=== PATIENT | male | born 1950 | race Caucasian/White ===

== ENCOUNTER → 2016-08-15 | Outpatient (REF) | payer MEDICARE, OTHER ==
[~2016-08-15] MED LIST: /ACETCOD2T PO; /PANT40TA PO; ALLO300T2 PO; ASPI325T PO; ATOR40TA PO; CALC1CAP31 PO; CO Q100C10 PO; CRES20TA PO; FEBU40TA PO; FISH1000 PO; FURO80TA2 PO; GABA300C2 PO; HUMA100I SC; HUMU70IN SC; INSUHUMDS SC; INSULANT SC; INSUR50VL SC; INVO100T PO; LANTINJ4 SC; LIPI20TA PO; LOPR50TA PO; MAGN1TAB25 PO; METF500T PO; MULTTAB35 PO; NITR0.4D6 TD; POTASSIUM CHLORIDE PO; RANI15TA PO; SOMA350T PO; SPIR25TA2 PO; TORS20TA2 PO; TOUJ1.2I SC; ULOR80TA PO; VITA-121 PO; VITA500C24 PO; VOLT1GEL2 TOP; ZANT300T PO; [UNRECOGNIZED DRUG - OTHER] PO
== END ==
LOC: M LABNEURO 17:05
PROVIDERS: ATTEND Psychiatry & Neurology Neurology
DX: R79.9 Abnormal finding of blood chemistry, unspecified (principal)

== ENCOUNTER 2018-08-08 23:15 | Inpatient (IN) | payer MEDICARE ==
[~2018-08-08] VITALS: Ht 175.3 cm; Wt 156.9 kg
[~2018-08-08 23:15] MED LIST changes: -ATOR40TA PO; +ATOR40TA75 PO; -ZANT300T PO; +ZANT300T9 PO
[2018-08-09 02:15] VITALS: BP 139/63
[2018-08-09] MEDS ORDERED: ONDANSETRON 4MG/2ML VIAL (J2405) IV PRN (02:30)
[2018-08-09 03:29] LABS: HEMATOCRIT 43.4 % (42.0-52.0); MEAN CORPUSCULAR HEMOGLOBIN 28.4 pg (27.0-33.0); MEAN CORPUSCULAR HGB CONC 32.3 g/dl (32.0-36.5); PLATELET COUNT, AUTOMATED 146 10^3/uL (150-450); RED BLOOD COUNT 4.93 10^6/uL (4.30-6.10); WHITE BLOOD COUNT 19.5 10^3/uL (4.0-10.0)
[2018-08-09 03:33] LABS: INR 1.29; PROTHROMBIN TIME 16.3 SECONDS (12.1-14.4)
[2018-08-09 03:35] LABS: ALBUMIN 2.8 GM/DL (3.2-5.2); BILIRUBIN,TOTAL 0.8 MG/DL (0.2-1.0); CALCIUM LEVEL 8.8 MG/DL (8.8-10.2); CREATININE FOR GFR 2.67 MG/DL (0.70-1.30); GLOMERULAR FILTRATION RATE 25.5 (>49); MAGNESIUM LEVEL 2.3 MG/DL (1.8-2.4); POTASSIUM SERUM 4.1 MEQ/L (3.5-5.1); TOTAL PROTEIN 7.4 GM/DL (6.4-8.2); TROPONIN I 0.1 NG/ML (< 0.10)
[2018-08-09 03:39] LABS: PARTIAL THROMBOPLASTIN TIME 37.8 SECONDS (25.4-37.6)
[2018-08-09] MEDS ORDERED: ASPI1TAB20 PO (03:40)
[2018-08-09] MEDS ORDERED: BACL10TA2 PO (03:40)
[2018-08-09] MEDS ORDERED: GABA-843 PO (03:40)
[2018-08-09] MEDS ORDERED: ACET1TAB16 PO (03:40)
[2018-08-09] MEDS ORDERED: ASCO500T PO (03:40)
[2018-08-09] MEDS ORDERED: ULOR80TA PO (03:40)
[2018-08-09] MEDS ORDERED: ATOR40TA75 PO (03:40)
[2018-08-09] MEDS ORDERED: INSUHUMDS SC (03:40)
[2018-08-09] MEDS ORDERED: CALC1CAP31 PO (03:40)
[2018-08-09] MEDS ORDERED: TOUJ1.2I SC (03:40)
[2018-08-09] MEDS ORDERED: HUMA100I5 SC (03:40)
[2018-08-09] MEDS ORDERED: TRAD5TAB PO (03:40)
[2018-08-09] MEDS ORDERED: FAMO40TA3 PO (03:40)
[2018-08-09] MEDS ORDERED: DEXTROSE 50% 50 ML SYRINGE IV PRN (03:45)
[2018-08-09] MEDS ORDERED: VITMTA PO (03:45)
[2018-08-09] MEDS ORDERED: GLUCAGON FOR INJ 1 MG VIAL (J1610) SC PRN (03:45)
[2018-08-09] MEDS ORDERED: CO Q200C7 PO (03:45)
[2018-08-09] MEDS ORDERED: SPIR-10 PO (03:45)
[2018-08-09] MEDS ORDERED: METO5TA PO (03:45)
[2018-08-09] MEDS ORDERED: TORS100T PO (03:45)
[2018-08-09] MEDS ORDERED: METO50TA7 PO (03:45)
[2018-08-09] MEDS ORDERED: OMEG12004 PO (03:45)
[2018-08-09] MEDS ORDERED: GLUCOSE 4 GM CHEW TABLET PO PRN (03:45)
[2018-08-09] MEDS ORDERED: BACLOFEN 10 MG TAB PO PRN (04:00)
[2018-08-09] MEDS ORDERED: NS 1,000 ML IV SCH (04:00)
[2018-08-09] MEDS: CO-ENZYME Q10 50 MG CAP PO SCH ×2 (04:33→20:51)
[2018-08-09] MEDS: FAMOTIDINE 20 MG TAB PO SCH ×2 (04:33→20:52)
[2018-08-09] MEDS: ATORVASTATIN 20 MG TAB PO SCH ×2 (04:33→20:51)
[2018-08-09] MEDS ORDERED: IPRATROPIUM 0.5MG/ALBUTEROL 2.5MG INH SOL UD 3ML (DUONEB)(J7620) NEB PRN (04:45)
[2018-08-09] MEDS: HEPARIN SOD (PORCINE) 5000 UNITS/ML VIAL SC SCH ×3 (05:20→20:52)
[2018-08-09 06:00] VITALS: BP 128/69
[2018-08-09 06:39] LABS: THYROID STIMULATING HORMONE 0.959 uIU/ML (0.358-3.740)
[2018-08-09] MEDS ORDERED: LEVEMIR (INSULIN DETEMIR) 1 UNITS/0.01ML SC SCH ×2 (09:00)
[2018-08-09] MEDS: CALCITRIOL 0.25 MCG CAP (S0169) PO SCH (09:54)
[2018-08-09] MEDS: LEVEMIR (INSULIN DETEMIR) 1 UNITS/0.01ML SC SCH ×2 (09:54→20:53)
[2018-08-09] MEDS: FEBUXOSTAT 40 MG TABLET (ULORIC) PO SCH (09:54)
[2018-08-09] MEDS: ASPIRIN 325 MG TAB PO SCH (09:54)
[2018-08-09] MEDS: ASCORBIC ACID 500 MG TAB PO SCH (09:54)
[2018-08-09] MEDS: HumaLOG INSULIN (NovoLOG) PER UNIT SC SCH ×3 (09:54→17:33)
[2018-08-09] MEDS: METOPROLOL TART 50 MG TAB PO SCH ×2 (09:55→20:52)
[2018-08-09] MEDS: GABAPENTIN 300 MG CAP PO SCH ×2 (09:55→20:52)
[2018-08-09] MEDS: MULTIVITAMINS/MINERALS THERAP 1 TAB PO SCH (09:55)
[2018-08-09 10:25] LABS: AMORPHOUS SEDIMENT SMALL (NEGATIVE); APPEARANCE, URINE CLEAR (CLEAR); BACTERIA, URINE AUTO 2+ (NEGATIVE); BILIRUBIN, URINE AUTO NEGATIVE (NEGATIVE); BLOOD, URINE BLOOD 3+ (NEGATIVE); COLOR, URINE YELLOW (YELLOW); GLUCOSE, URINE (UA) AUTO NEGATIVE (NEGATIVE); KETONE, URINE AUTO NEGATIVE (NEGATIVE); LEUKOCYTE ESTERASE, URINE AUTO 1+ (NEGATIVE); MUCUS, URINE SMALL (NEGATIVE); NITRITE, URINE AUTO NEGATIVE (NEGATIVE); PROTEIN, URINE AUTO 1+ mg/dL (NEGATIVE); RBC, URINE AUTO 134 /HPF (0-3); SQUAMOUS EPITHELIAL CELL UR AU 0 /HPF (0-6); UROBILINOGEN, URINE AUTO 0.2 mg/dL (0.0-2.0); WBC, URINE AUTO 31 /HPF (0-3)
--- NOTE | 2018-08-09 10:27 | HPE ---
DATE OF ADMISSION: 08/09/2018 CHIEF COMPLAINT: The patient was transferred from [facility] where he presented with what was described as confusion and elevated white count, elevated blood pressure. HISTORY OF PRESENT ILLNESS: The patient is a 68-year-old male. He is a very poor historian. Gave a significant past medical history of insulin dependent diabetes with neuropathy, coronary artery disease (CAD) status post coronary artery bypass graft (CABG), questionable congestive heart failure (CHF), hypertension, hyperlipidemia, gout, obstructive sleep apnea on CPAP. He also has chronic kidney disease (CKD) and follows with Dr. Bahena. He presented to the emergency room at [facility], brought there by his with what his describes as confusion. While there, he was noted to have a white count of 19. He was juárez scanned CT of the abdomen and pelvis showing a hernia on my review but, other than that, no acute disease. CT of the chest showed left lower lobe atelectasis versus pneumonia. CT of the head showed atrophy and microvascular ischemic disease but no acute change. His BUN and creatinine was noted to be elevated at 108/2.9. Dr. Block, his regional flatbed truck driver who is partnered for nephrology Dr. Bahena was called It appears his baseline creatinine is around 2. Casillas was placed there with decent urine output. He was subsequently transferred here because of concern for acute renal failure and the fact that there is no nephrology service available at [facility]. On presentation, the patient is seen and examined at beside. His labs are reviewed. He has a white count of 19. He does not appear toxic. He denies any cough, fevers, chills, chest pain, shortness of breath, He has no focal neurological deficits. He denies any abdominal pain, constipation, diarrhea, or urinary symptoms. He has a Casillas in place that is draining. He is alert and oriented times two. He does have some difficulty stating what date it is but he is aware of where he is and he is oriented to person. He is able to hold a cohesive conversation and give significant details in regards to his history. He has a history of chronic back pain for which he takes Tylenol #3 and is recently started on muscle relaxer approximately 1 month ago. States he has not taken the medication today. I am unclear if this is polypharmacy contributing to changes in mentation. He does not appear toxic. He does not appear in any acute distress, however, he does have a white count of 19,000. The rest of his labs. BUN and creatinine has improved from 97. To 2.67. Previously in the other labs, baseline creatinine is around 2. PAST MEDICAL HISTORY: See history of present illness (HPI). PAST SURGICAL HISTORY: He has had appendectomy. Tonsillectomy. Back surgery. CABG in 2009 at [facility]. HOME MEDICATIONS: - vitamin C - aspirin 325 mg - Lipitor - baclofen - calcitriol - Pepcid - Uloric - gabapentin - Toujeo 150 twice a day - metoprolol 50 mg by mouth twice a day - multivitamins - Tylenol #3 - muscle relaxant, he states which he recently started and cannot recall the name. ALLERGIES: NONSTEROIDAL ANTI-INFLAMMATORY DRUGS (NSAIDS), tape. SOCIAL HISTORY: Denies tobacco, alcohol or illicit drug use. FAMILY HISTORY: Noncontributory. REVIEW OF SYSTEMS: A 12-point review of system was completed all of which were negative except those listed in the history of present illness (HPI). VITALS: On admission temperature 98.3, pulse 88, respirations 18, blood pressure 139/63, saturating at 96% on 3 liters. PHYSICAL EXAMINATION: GENERAL: He is obese. In no apparent distress. HEAD: Normocephalic, atraumatic. NECK: Supple. No jugular venous pulse (JVP). LUNGS: Poor air entry. Difficult to auscultate due to body habitus. No wheezing or crackles discerned. CARDIOVASCULAR: Regular rate and rhythm. Normal S1, S2, no murmurs, gallops or rubs. ABDOMEN: Obese. But nontender. Positive bowel sounds. No rebound or guarding. EXTREMITIES: No edema. No calf tenderness. SKIN: Appears to be intact. No rashes, lesions or breakdown. NEUROLOGIC: He is alert and oriented to person and place easily. He has to be prompted to be alert to time. He has some trouble but he is able to hold a cohesive conversation. No focal neurologic deficit. Sensation and power appear to be intact. He appears to be somewhat of a poor historian. Labs on admission completed here: He has a white count of 19, hemoglobin and hematocrit 14/43, platelet count 146. Coags shows an INR of 1.2, PT 16, PTT 37. Chemistries: BUN and creatinine of 97/2.67. As per Dr. Block, his baseline creatinine is around 2. Bicarbonate 29, lactate within normal limits, AST 48, alkaline phosphatase 177. Fingerstick is 223. His imaging was reviewed. CT of the head shows atrophy but no acute change. CT of the chest shows left lower lobe haziness, possible atelectasis versus pneumonia. CT of the abdomen and pelvis shows no acute pathology, as per my review, still awaking official results. ASSESSMENT/PLAN: Delirium, confusion: The etiology at this point is unclear. The patient does not appear toxic. Will treat him for community acquired pneumonia with Rocephin and Zithromax with an elevated white count. Will send a sputum culture. Oxygen as needed. Blood cultures times two as well as urinanalysis to be repeated. Negative at the outside facility. For acute kidney injury (VIVIAN) and chronic kidney disease (CKD) will send urine lytes. Will get renal consultation. CT of the abdomen and pelvis completed. Does not appear to have any obstruction. Will fluid hydrate gently. Patient appears to be dehydrated. There is also question of possible polypharmacy, possibly hypoglycemia. I am unclear why the patient had waxing and waning of mentation. Will send a B12 level as well as a TSH. For his chronic medical conditions, questionable congestive heart failure (CHF): As patient appears to be dehydrated, at this point, will hold his diuretics metolazone, spironolactone and torsemide. . For his chronic pain, will hold his Tylenol #3 as well as his muscle relaxant he recently started on. For diabetes with neuropathy, continue gabapentin. He is on Toujeo 150 mg twice a day. It is a very high dose. Will start at 120 of Levemir twice a day for now. Though it is a 1:1 ratio of Toujeo to Levemir, will place him on insulin sliding scale. Will continue gabapentin for his neuropathy. Will hold Tradjenta Obstructive sleep apnea on CPAP with 3 liters bled in at night. Will continue his CPAP as well as his oxygen nasal cannula. Coronary artery disease status post CABG: Will continue aspirin 325 mg. Will continue metoprolol 50 mg twice a day. For gout, will continue Uloric (febuxostat). Will also place him on DuoNebs as needed. Gastroesophageal reflux disease (GERD), will continue Pepcid. Deep venous thrombosis (DVT) prophylaxis: Heparin subcutaneous. GI prophylaxis: The patient is on Pepcid. Diet: Cardiac, diabetic, fluid restriction 2 liters per day. Again, the patient does not appear toxic. I am unclear as to why he is having waxing and waning delirium, changes in his mentation as per his . Unclear if this is pneumonia with worsening renal failure and dehydration causing mild uremia and some confusion versus polypharmacy and will rule out other causes of dementia and sent TSH as well as a B12 and RPR. The patient is to be seen by a regional flatbed truck driver in the morning.
[2018-08-09 10:31] LABS: CHLORIDE,RANDOM URINE < 10 MEQ/L; POTASSIUM RANDOM URINE 21.5 MEQ/L; SODIUM,RANDOM URINE 24 MEQ/L
[2018-08-09 14:00] VITALS: BP 124/58
[2018-08-09] MEDS: cefTRIAXone SOD 1 GM in D5W MINI-BAG PLUS 50 ML IV SCH (20:51)
[2018-08-09] MEDS: AZITHROMYCIN INJ 500 MG, VIAL MATE ADAPTER 1 EACH in D5W 250 ML IV SCH (21:53)
[2018-08-09 22:00] VITALS: BP 179/70
--- NOTE | 2018-08-10 00:35 | ECGEPIP ---
Stationary ECG Study [facility] Test Date: 2018-08-09 Pat Name: VELVET HOLLIS Department: Room: [place] [address] Gender: M Software Support Engineer: KRISTIAN : [id number] Requested By: HOMAR HARRIETT Order Number: [id number] Reading MD: Garry Flores Measurements Intervals [place] Rate: 83 P: 48 GA: 206 QRS: -7 QRSD: 134 T: 115 QT: 415 QTc: 489 Interpretive Statements SINUS RHYTHM WITH OCCASIONAL VENTRICULAR PREMATURE COMPLEXES INTRAVENTRICULAR CONDUCTION DELAY NS ST/T ABNORMALITY NO PRIOR Electronically Signed On 08-10-2018 0:35:05 EST by Garry Flores
[2018-08-10] MEDS: HEPARIN SOD (PORCINE) 5000 UNITS/ML VIAL SC SCH ×3 (05:37→21:10)
[2018-08-10 06:00] VITALS: BP 156/64
[2018-08-10 06:47] LABS: HEMATOCRIT 40.7 % (42.0-52.0); HEMOGLOBIN 12.9 g/dl (13.5-17.5); MEAN CORPUSCULAR HEMOGLOBIN 27.9 pg (27.0-33.0); MEAN CORPUSCULAR HGB CONC 31.7 g/dl (32.0-36.5); MEAN CORPUSCULAR VOLUME 88.1 fl (80.0-96.0); PLATELET COUNT, AUTOMATED 134 10^3/uL (150-450); RED BLOOD COUNT 4.62 10^6/uL (4.30-6.10); WHITE BLOOD COUNT 9.1 10^3/uL (4.0-10.0)
[2018-08-10 07:19] LABS: CALCIUM LEVEL 8.9 MG/DL (8.8-10.2); CREATININE FOR GFR 2.21 MG/DL (0.70-1.30); GLOMERULAR FILTRATION RATE 31.8 (>49)
[2018-08-10] MEDS: GABAPENTIN 300 MG CAP PO SCH ×2 (08:09→21:11)
[2018-08-10] MEDS: ASCORBIC ACID 500 MG TAB PO SCH (08:09)
[2018-08-10] MEDS: CALCITRIOL 0.25 MCG CAP (S0169) PO SCH (08:09)
[2018-08-10] MEDS: ASPIRIN 325 MG TAB PO SCH (08:09)
[2018-08-10] MEDS: MULTIVITAMINS/MINERALS THERAP 1 TAB PO SCH (08:09)
[2018-08-10] MEDS: FEBUXOSTAT 40 MG TABLET (ULORIC) PO SCH (08:09)
[2018-08-10] MEDS: METOPROLOL TART 50 MG TAB PO SCH ×2 (08:09→21:12)
[2018-08-10] MEDS: LEVEMIR (INSULIN DETEMIR) 1 UNITS/0.01ML SC SCH ×2 (08:10→21:11)
[2018-08-10] MEDS: HumaLOG INSULIN (NovoLOG) PER UNIT SC SCH ×3 (08:10→17:50)
--- NOTE | 2018-08-10 09:06 | CR ---
DATE OF CONSULTATION: 08/09/2018 REQUESTING PHYSICIAN: Dr. Ma Friday CONSULTING PHYSICIAN: Dr. Block REASON FOR CONSULTATION: Management of acute renal failure superimposed on chronic kidney disease. CHIEF COMPLAINT: The patient was transferred from [facility] last night. He presented to the emergency room (ER) last night with altered mental status and confusion and he was found to have acute renal failure over there with elevated white cell count. HISTORY OF PRESENT ILLNESS: Mr. Jameel Bowen is a 68-year-old male with past medical history of chronic kidney disease Stage IV with a baseline creatinine of around 2.4. He follows up with Dr. Bahena as an outpatient in the nephrology office. He has multiple other comorbidities including coronary artery disease, congestive heart failure, hypertension, and multiple other comorbidities as mentioned below. He presented to the [facility] last night where he was taken by his because of confusion and altered mental status. The lab work done in the emergency room showed that he had acute renal failure superimposed on chronic kidney disease Stage IV. He had a creatinine of 2.9. His BUN was more than 100. The patient also had an elevated white cell count of 19. He got chest imaging done. Because of his history of chronic kidney disease, the ER physician, Dr. Knight, called the nephrology service and I talked to the ER physician last night. Because of unavailability of nephrology service at [facility] and because of patient's possibly developing sepsis and renal failure, decision was made to transfer the patient to [facility]. The patient was transferred last night and was admitted under the hospitalist service. Nephrology service has been called today morning for further help in the management of this patient. I saw and evaluated the patient today morning. The patient was awake and alert. He was given IV fluids and IV antibiotics last night and he reports that he feels much better today as compared with yesterday. PAST MEDICAL HISTORY: 1. Chronic kidney disease Stage IV with a baseline creatinine of 2.4. 2. History of morbid obesity. 3. Diabetes mellitus type 2 with peripheral neuropathy. 4. Coronary artery disease status post coronary artery bypass graft (CABG). 5. Congestive heart failure. 6. Left ventricular ejection fraction unknown. 7. Hypertension. 8. Gout. 9. Obstructive sleep apnea, in Bipap. PAST SURGICAL HISTORY: 1. Status post appendectomy. 2. Status post tonsillectomy. 3. Status post cholecystectomy. 4. History of back surgery. 5. Status post coronary artery bypass grafting in 2010 at [facility]. ALLERGIES: - TAPE - NSAIDS FAMILY HISTORY: No significant family history of end stage renal disease requiring hemodialysis. SOCIAL HISTORY: The patient denies any illicit drug abuse, smoking or alcohol abuse. REVIEW OF SYSTEMS: Constitutional: Patient reports he was feeling weak and lethargic. Eyes: He denies any blurry vision, double vision. ENT: He denies any dysphagia, odynophagia. Cardiovascular: He denies any chest pain or palpitations. Respiratory: He denies any cough or phlegm. GI: He denies any nausea or vomiting. Genitourinary: He denies any dysuria or hematuria. Musculoskeletal: He denies any muscle aches and pains. Central Nervous System: He denies any strokes or seizures. Hematologic/Oncologic: He denies any easy bleeding or bruising. Endocrine: Reports history of diabetes mellitus type 2. All other review of systems is negative. PHYSICAL EXAMINATION: General: Patient is awake, alert and oriented times three, morbidly obese, sitting up in the bed in no apparent distress. Vital Signs: Temperature 98.3 degrees Fahrenheit, blood pressure 128/69, pulse 92, respiratory rate 18, saturating 96% on 3 liters nasal cannula. Head and Neck Exam: Extraocular muscles intact. Pupils equally round and reactive to light. Mucous membranes are moist. Neck is supple. There is no jugular venous distention (JVD). Cardiovascular: S1 and S2, regular rate. Trace edema of the bilateral lower extremities. Respiratory: Chest is clear to auscultation bilaterally. Bilateral equal air entry. No rales or rhonchi. Abdomen: Soft. Obese. Positive bowel sounds. Nontender. No organomegaly. Genitourinary: Patient has an indwelling Casillas catheter. Urine in the bag is dark in color. Musculoskeletal: He has chronic venous stasis changes of bilateral ankles. Trace edema of the bilateral lower extremities. Central Nervous System: No focal deficit. Power is 5/5 in bilateral upper extremities. Psych: Normal mood and affect. LAB REVIEW: CBC showed a WBC of 19.5, hemoglobin 14, platelets 146. Urinalysis done yesterday showed 3+ blood, 1+ leukocyte esterase. Urine random sodium was 24. Random potassium 21.5. Random chloride less than 10. BMP done last night showed sodium 138, potassium 4.1, chloride 100, bicarbonate 29, BUN 97, creatinine 2.6, lactic acid 1.8, albumin 2.8, TSH 0.9. Microbiology: Blood cultures are pending. IMAGING: There is no imaging done over here, however, it was reported to me that CT of chest did not show any active infiltrates. There was a left lower lobe haziness, possible atelectasis, questionable pneumonia. CT of the abdomen and pelvis showed no acute pathology. CURRENT INPATIENT MEDICATIONS: Patient's current medications include azithromycin 500 mg IV daily, Rocephin 1 gram IV daily. He was also on normal saline at 90 mL/hr. He is on DuoNeb every 4 hours as needed, vitamin C 500 mg daily, aspirin 325 mg daily, Lipitor 40 mg at bedtime, baclofen 10 mg by mouth daily, calcitriol 0.25 mcg daily, CoQ10 200 mg at bedtime, Pepcid 10 mg at bedtime, Uloric 80 mg daily, gabapentin 300 mg by mouth twice a day, heparin subcutaneous, insulin Levemir 120 units subcutaneous twice a day, insulin sliding scale, metoprolol 50 mg by mouth twice a day, multivitamin, Zofran as needed. HOME MEDICATIONS: Patient's home medications include Tylenol with codeine, Vitamin C, aspirin, Lipitor, baclofen, calcitriol 0.25 mcg by mouth daily, COQ10, Pepcid, Uloric 80 mg daily, gabapentin 300 mg by mouth twice a day, insulin sliding scale, Tradjenta 5 mg by mouth daily, metolazone 5 mg daily, metoprolol 50 mg by mouth twice a day, multivitamin, spironolactone 25 mg by mouth twice a day, torsemide 100 mg by mouth twice a day, Toujeo 150 units subcutaneous twice a day. ASSESSMENT: 68-year-old male with history of chronic kidney disease Stage IV, morbid obesity, chronic edema, congestive heart failure, diabetes mellitus type 2, and gout admitted at this time with acute renal failure, leukocytosis and pneumonia. PLAN: 1. Acute renal failure superimposed on chronic kidney disease Stage IV. Patient's baseline creatinine is 2.4. The patient is dehydrated because of pneumonia and use of diuretics at home. He was given IV fluid hydration overnight. Renal function is improving. Creatinine has come down to 2.6 which is coming close to his baseline. I would stop his IV fluids in the afternoon today. Continue to hold his diuretics. Renal function is expected to improve back to baseline over the next 24 to 48 hours. 2. Community acquired pneumonia. The patient was given Rocephin and azithromycin last night. He is symptomatically getting better. Cultures are pending. Continue current dose of IV antibiotics. 3. Diabetes mellitus type 2. Insulin dependent. Continue current dose of Levemir and insulin sliding scale. Avoid use of Tradjenta at this point. The rest of the management is as per primary team. 4. Chronic gout secondary to chronic kidney disease. Continue current dose of Uloric. 5. Secondary hyperparathyroidism. Continue current dose of calcitriol 0.25 mcg by mouth daily. 6. Congestive heart failure. The patient's LV ejection fraction is not known. Clinically it looks like patient has diastolic congestive heart failure. Continue metoprolol at this point. Diuretics are on hold because of acute renal failure. No significant volume overload was noted at this point. The patient is clinically actually dry. Thank you for involving me in the care of this patient. I shall be happy to follow the patient along with you tomorrow morning.
[2018-08-10] MEDS: SPIRONOLACTONE 25 MG TAB PO SCH (13:13)
[2018-08-10] MEDS: TORSEMIDE (DEMADEX) 50 MG PER 1/2 TAB PO SCH ×2 (13:13→17:49)
[2018-08-10 14:00] VITALS: BP 149/64
--- NOTE | 2018-08-10 15:17 | IPNPDOC ---
Text Note Date of Service The patient was seen on 08/10/18. NOTE Subjective: Patient is a 8-year-old male with a PMHx of CAD s/p CABG, CHF, HTN, IDDM2, DLP, MORIAH on CPAP, CKD3, Neuropathy, Gout, who presented to [facility] from [facility] for renal failure. Patient was found to have an acute kidney injury, likely secondary from excessive diuretics and possible kidney acquired pneumonia. Patient was admitted to hospitalist service for further evaluation and treatment. Nephrology was called on consultation. Patient was seen and examined at the bedside. Patient was that the breathing is doing better. Denies any chest pain, shortness breath or palpitations, nausea, vomiting, abdominal pain, constipation, diarrhea. Objective: Vitals (See below) General: Lying in bed, no acute distress, comfortable, AAOx3 HEENT: NC, AT CVS: RRR, +S1S2 Lungs: Fair air entry b/l, auscultation without wheezing / rales / rhonchi Abdomen: Soft, ND, NT Extremities: - Edema, - Calf tenderness Assessment and plan: s/p Acute metabolic encephalopathy - likely 2/2 polypharmacy, possibly 2/2 CAP, possibly 2/2 delirium - Mentation has improved; oriented x3 - No focal deficits - c/w below Community acquired pneumonia - Complaints of mild cough, no significant SOB - Physical without any adventitious lung sounds - s/p Leukocytosis, No lactic acidosis - Imaging at [facility] revealed infiltrate - c/w Ceftriaxone and Azithromycin (Day #3); Will transition to Cefdinir and Azithromycin Acute kidney injury on CKD3 - Cr appears to have improved to baseline - s/p IV fluid hydration - Resume diuretic therapy CAD s/p CABG - c/w ASA, Atorvastatin, CHF - Mild LE edema noted - ECHO pending - Will resume diuretics HTN IDDM2 - c/w ISS - c/w Levemir 120 BID DLP - c/w Atorvastatin MORIAH on CPAP - May use own BIPAP Neuropathy - c/w Gabapentin Gout - c/w Febuxostat GERD - c/w Famotidine DVT prophylaxis - c/w Lovenox VS,Fishbone, I+O VS, Fishbone, I+O Laboratory Tests 08/10/18 06:00 Red Blood Count 4.62, Mean Corpuscular Volume 88.1, Mean Corpuscular Hemoglobin 27.9, Mean Corpuscular Hemoglobin Concent 31.7 L, Red Cell Distribution Width 15.7 H, Calcium Level 8.9 Vital Signs Date Time Temp Pulse Resp B/P (MAP) Pulse Ox O2 Delivery O2 Flow Rate FiO2 08/10/18 08:09 69 156/64 08/10/18 06:00 98.1 18 94 3.0 I&O- Last 24 Hours up to 6 AM 08/10/18 06:00 Intake Total 2770 ml Output Total 1575 ml Balance 1195 ml HERACLIO ABREU MD Aug 10, 2018 15:17
[2018-08-10] MEDS: CO-ENZYME Q10 50 MG CAP PO SCH (21:11)
[2018-08-10] MEDS: ATORVASTATIN 20 MG TAB PO SCH (21:12)
[2018-08-10] MEDS: FAMOTIDINE 20 MG TAB PO SCH (21:12)
[2018-08-10] MEDS: cefTRIAXone SOD 1 GM in D5W MINI-BAG PLUS 50 ML IV SCH (21:12)
[2018-08-10 22:00] VITALS: BP 171/68
[2018-08-10] MEDS: AZITHROMYCIN INJ 500 MG, VIAL MATE ADAPTER 1 EACH in D5W 250 ML IV SCH (22:39)
[2018-08-11] MEDS: HEPARIN SOD (PORCINE) 5000 UNITS/ML VIAL SC SCH ×3 (05:42→20:45)
[2018-08-11 06:00] VITALS: BP 122/73
[2018-08-11 06:44] LABS: HEMATOCRIT 43.2 % (42.0-52.0); HEMOGLOBIN 13.8 g/dl (13.5-17.5); MEAN CORPUSCULAR HEMOGLOBIN 27.8 pg (27.0-33.0); MEAN CORPUSCULAR HGB CONC 31.9 g/dl (32.0-36.5); MEAN CORPUSCULAR VOLUME 86.9 fl (80.0-96.0); PLATELET COUNT, AUTOMATED 152 10^3/uL (150-450); RED BLOOD COUNT 4.97 10^6/uL (4.30-6.10); WHITE BLOOD COUNT 7.9 10^3/uL (4.0-10.0)
[2018-08-11 07:03] LABS: CALCIUM LEVEL 8.8 MG/DL (8.8-10.2); CREATININE FOR GFR 2.28 MG/DL (0.70-1.30); GLOMERULAR FILTRATION RATE 30.7 (>49); POTASSIUM SERUM 3.9 MEQ/L (3.5-5.1)
[2018-08-11] MEDS: HumaLOG INSULIN (NovoLOG) PER UNIT SC SCH ×3 (07:30→17:54)
[2018-08-11] MEDS: LEVEMIR (INSULIN DETEMIR) 1 UNITS/0.01ML SC SCH ×2 (08:55→20:45)
[2018-08-11] MEDS: FEBUXOSTAT 40 MG TABLET (ULORIC) PO SCH (08:55)
[2018-08-11] MEDS: METOPROLOL TART 50 MG TAB PO SCH ×2 (08:56→20:44)
[2018-08-11] MEDS: ASPIRIN 325 MG TAB PO SCH (08:56)
[2018-08-11] MEDS: SPIRONOLACTONE 25 MG TAB PO SCH (08:56)
[2018-08-11] MEDS: AZITHROMYCIN 250 MG TAB PO SCH (08:57)
[2018-08-11] MEDS: CALCITRIOL 0.25 MCG CAP (S0169) PO SCH (08:57)
[2018-08-11] MEDS: ASCORBIC ACID 500 MG TAB PO SCH (08:57)
[2018-08-11] MEDS: CEFDINIR 300 MG CAP (OMNICEF) PO SCH ×2 (08:57→20:43)
[2018-08-11] MEDS: MULTIVITAMINS/MINERALS THERAP 1 TAB PO SCH (08:57)
[2018-08-11] MEDS: TORSEMIDE (DEMADEX) 50 MG PER 1/2 TAB PO SCH ×2 (08:57→17:53)
[2018-08-11] MEDS: GABAPENTIN 300 MG CAP PO SCH ×2 (08:57→20:44)
[2018-08-11 09:00] LABS: VITAMIN B12 LEVEL > 2000 PG/ML (232-1245)
--- NOTE | 2018-08-11 10:21 | IPN ---
DATE OF SERVICE: 08/10/2018 SUBJECTIVE: Patient was seen and examined at the bedside today morning. Patient reports that he is feeling much better today as compared with yesterday. His renal function is also improving. Creatinine down to 2.2 which is close to his baseline. White cell count is also improving. His breathing is also significantly better with the antibiotics. OBJECTIVE: Vital signs: Temperature 98.1 degrees Fahrenheit, blood pressure 156/64, pulse is 69, respiratory rate of 18, saturating 94% on nasal cannula at 3 liters. Intake and output: Urine output recorded as 2.5 liters yesterday, 525 mL so far today since overnight. Weight on the bed scale is not available. PHYSICAL EXAMINATION: General: Patient is awake, alert oriented times three. Morbidly obese, sitting up in the bed breathing nasal cannula. Head and neck exam: Extraocular muscles intact. Pupils equal, round, and reactive to light. Mucous membranes are moist. Neck is supple. There is no jugular venous distention. Cardiovascular: S1, S2. 1+ edema of the bilateral lower extremities. Respiratory: Chest is clear to auscultation bilaterally. Bilateral equal air entry. No rales or rhonchi. Abdomen: Soft, no wheeze. Positive bowel sounds. Nontender. No organomegaly. Musculoskeletal: No clubbing or cyanosis. Pulses are 2+. SALES AND SERVICE ASSOCIATE: No focal deficit. Power is 5/5 in all extremities. LAB REVIEW: CBC showed WBC 9.1, hemoglobin 12.9, platelets 134. BMP showed sodium 140, potassium 4, chloride 103, bicarbonate 28, BUN 82, creatinine is 2.2, it was 2.6 yesterday. Glucose 177. Calcium 8.9. Microbiology: Sputum gram stain showed many gram positive cocci in pairs, chains and clusters. CURRENT INPATIENT MEDICATIONS: Patient's medications were all reviewed by me. He continues to be on IV ceftriaxone and IV azithromycin. I have started the patient on spironolactone 25 mg by mouth daily and torsemide 50 mg by mouth twice a day. ASSESSMENT AND PLAN: 1. Acute renal failure superimposed on chronic kidney disease stage IV. Patient was given IV fluid hydration when he came in. His renal function is improving. Creatinine is down to 2.2 which is close to his baseline. I am going to restart the patient on low dose diuretics. 2. Community acquired pneumonia. Patient has Rocephin and azithromycin. His white cell count is significantly better. His breathing is improving. 3. Congestive heart failure. Patient has 1+ edema. At this point, he was given aggressive IV fluid hydration when he came in. He is on torsemide 100 mg by mouth twice a day and spironolactone 25 mg by mouth twice a day at home. I am going to start him on half that dose, torsemide 50 mg by mouth twice a day and spironolactone 50 mg daily for now. 4. Diabetes mellitus type 2. Continue insulin sliding scale and Levemir. Tradjenta is on hold. 5. Chronic gout secondary to chronic kidney disease. Continue current dose of Uloric.
--- NOTE | 2018-08-11 12:24 | IPNPDOC ---
Text Note Date of Service The patient was seen on 08/11/18. NOTE Subjective: Patient is a 8-year-old male with a PMHx of CAD s/p CABG, CHF, HTN, IDDM2, DLP, MORIAH on CPAP, CKD3, Neuropathy, Gout, who presented to [facility] from [facility] for renal failure. Patient was found to have an acute kidney injury, likely secondary from excessive diuretics and possible kidney acquired pneumonia. Patient was admitted to hospitalist service for further evaluation and treatment. Nephrology was called on consultation. Patient was seen and examined at the bedside. Patient denies any significant cough, shortness of breath or chest pain. Denies any nausea, vomiting, abdominal pain, constipation, diarrhea or discomfort with urination. Objective: Vitals (See below) General: Lying in bed, no acute distress, comfortable, AAOx3 HEENT: NC, AT CVS: RRR, +S1S2 Lungs: Fair air entry b/l, does not appear to be any auscultated evidence of rhonchi, rales or wheezing Abdomen: Soft, nontender, nondistended, obese Extremities: 1+ pitting edema bilaterally, - Calf tenderness Assessment and plan: s/p Acute metabolic encephalopathy - likely 2/2 polypharmacy, possibly 2/2 CAP, possibly 2/2 delirium - Mentation has improved; oriented x3 - No focal deficits - c/w below Community acquired pneumonia - Initially had complaints of mild cough, no significant SOB - Physical without any adventitious lung sounds - s/p Leukocytosis, No lactic acidosis - Imaging at [facility] revealed infiltrate - c/w Cefdinir and Azithromycin (Day #4); s/p Ceftriaxone Acute kidney injury on CKD3 - Cr appears to have improved to baseline (~2.4) - s/p IV fluid hydration - c/w adjust dose of diuretic therapy CAD s/p CABG - c/w ASA, Atorvastatin, CHF - Mild LE edema noted - ECHO complete; report pending - c/w adjusted dose of diuretics HTN IDDM2 - c/w ISS - c/w Levemir 120 BID DLP - c/w Atorvastatin MORIAH on CPAP - May use own BIPAP Neuropathy - c/w Gabapentin Gout - c/w Febuxostat GERD - c/w Famotidine DVT prophylaxis - c/w Lovenox Disposition: - Will work with physical therapy today. Anticipate discharge tomorrow VS,Kavinbone, I+O VS, Fishbone, I+O Laboratory Tests 08/11/18 06:17 Red Blood Count 4.97, Mean Corpuscular Volume 86.9, Mean Corpuscular Hemoglobin 27.8, Mean Corpuscular Hemoglobin Concent 31.9 L, Red Cell Distribution Width 15.8 H, Calcium Level 8.8 Vital Signs Date Time Temp Pulse Resp B/P (MAP) Pulse Ox O2 Delivery O2 Flow Rate FiO2 08/11/18 08:56 61 122/73 08/11/18 06:00 97.1 18 95 08/10/18 06:00 3.0 I&O- Last 24 Hours up to 6 AM 08/11/18 06:00 Intake Total 2865 ml Output Total 2325 ml Balance 540 ml HERACLIO ABREU MD Aug 11, 2018 12:24
--- NOTE | 2018-08-11 13:47 | ECHO ---
DATE OF STUDY: 08/11/2018 REFERRING PHYSICIAN: Dr. Estuardo Recinos INDICATION: Dyspnea. HEIGHT: 171 cm. WEIGHT: 157 kilograms. 2D MEASUREMENTS: Left ventricle diastole: 6.3 cm Ventricular septum: 1.11 cm Posterior wall: 1.06 cm Aortic root: 3.3 cm Aortic annulus: 3.6 cm Left antrum: 4.7 cm DOPPLER MEASUREMENTS: Aortic valve velocity: 102 cm/s Trace mitral regurgitation No mitral stenosis. Mitral E velocity: 120 cm/s Mitral A velocity: 85.9 cm/s Mitral deceleration time 261 milliseconds MITRAL ANNULAR TISSUE DOPPLER: E prime lateral: 5.6 cm/s E prime septal: 3.3 cm/s DESCRIPTION: Rhythm was sinus. This was a technically difficult echocardiogram. No pericardial effusion. This was a 2D, M-mode, color flow Doppler, and pulse wave Doppler examination and included mitral annular tissue Doppler. CONCLUSIONS: 1. Mild left ventricle dilatation with normal left ventricle (LV) wall thickness. Normal regional LV wall motion and wall thickening. Normal LV systolic function. Left ventricular ejection fraction (LVEF) 60% by visual estimate. 2. Grade II LV diastolic dysfunction (normal LV diastolic filling pattern). 3. Moderate left atrial dilatation. 4. Unable to assess pulmonary increased systolic pressure or estimated right ventricle systolic pressure on this study. Normal appearing right ventricle size and systolic function. 5. Technically difficult echocardiogram.
[2018-08-11 14:00] VITALS: BP 169/66
[2018-08-11] MEDS: ATORVASTATIN 20 MG TAB PO SCH (20:44)
[2018-08-11] MEDS: FAMOTIDINE 20 MG TAB PO SCH (20:45)
[2018-08-11] MEDS: CO-ENZYME Q10 50 MG CAP PO SCH (20:45)
[2018-08-11 22:00] VITALS: BP 146/62
[2018-08-12] MEDS: HEPARIN SOD (PORCINE) 5000 UNITS/ML VIAL SC SCH (05:45)
[2018-08-12 06:00] VITALS: BP 140/60
[2018-08-12 06:20] LABS: HEMATOCRIT 44.7 % (42.0-52.0); HEMOGLOBIN 14.1 g/dl (13.5-17.5); MEAN CORPUSCULAR HEMOGLOBIN 27.8 pg (27.0-33.0); MEAN CORPUSCULAR HGB CONC 31.5 g/dl (32.0-36.5); PLATELET COUNT, AUTOMATED 182 10^3/uL (150-450); RED BLOOD COUNT 5.08 10^6/uL (4.30-6.10); WHITE BLOOD COUNT 11.2 10^3/uL (4.0-10.0)
[2018-08-12 06:37] VITALS: BP 146/62
[2018-08-12 06:42] LABS: CALCIUM LEVEL 9.4 MG/DL (8.8-10.2); CREATININE FOR GFR 2.26 MG/DL (0.70-1.30); POTASSIUM SERUM 3.5 MEQ/L (3.5-5.1)
--- NOTE | 2018-08-12 07:13 | IPN ---
DATE OF SERVICE: 08/11/2018 SUBJECTIVE: Patient was seen and examined at the bedside today morning. He was getting his echocardiogram done when I saw him. He denies any shortness of breath at this time. He was started on diuretics yesterday. His renal function is stable. Creatinine is fluctuating at 2.2. His urine output is improving. OBJECTIVE: Vital signs: Temperature is 97.1 degrees Fahrenheit, blood pressure is 122/73, pulse is 61, respiratory rate of 18, saturating 95% on room air. Intake and output: Urine output recorded at 1.8 liter yesterday, 1.7 liter so far today since overnight. Weight on the bed scale is not available. PHYSICAL EXAMINATION: General: Patient is awake, alert, oriented times three, morbidly obese, lying in bed, no apparent distress. Head and neck exam: Extraocular muscles intact. Pupils equally round and reactive to light. Mucous membranes are moist. Neck is supple, there is no jugular venous distention (JVD). Cardiovascular: S1, S2. 1+ edema of the right lower extremity and 2+ edema of the left lower extremity. Respiratory: Mildly decreased breath sounds at the bases, otherwise no active rales or rhonchi. Abdomen is soft, obese, positive bowel sounds. Nontender. No organomegaly. Musculoskeletal: No clubbing or cyanosis. Pulses are 2+. Central nervous system: No focal neurological deficit. Power is 5/5 in all extremities. LAB REVIEW: CBC showed WBC 7.9, hemoglobin 13.8, platelets are 152. BMP showed sodium 139, potassium 3.9, chloride 103, bicarbonate 29, BUN 83, creatinine is 2.2. It was 2.2 yesterday as well. Glucose 87. Calcium is 8.8. CURRENT INPATIENT MEDICATIONS: IV azithromycin and Rocephin have been stopped. Patient is on oral azithromycin. He is on Omnicef 300 mg by mouth twice a day. No other change in the medications today as compared with yesterday. ASSESSMENT AND PLAN: 1. Acute renal failure superimposed on chronic kidney disease stage IV. Patient's renal function has improved back to baseline. His creatinine has been fluctuating around 2.2 which is slightly better than his baseline. Okay to continue current dose of diuretics at this point. 2. Community acquired pneumonia. Patient was on IV Rocephin and azithromycin. Antibiotics have been changed to oral antibiotics now. He is symptomatically better. White cell count is improved to normal. 3. Chronic diastolic congestive heart failure. Patient got the echocardiogram done and ejection fraction is 60%. He has grade 2 diastolic dysfunction. He was restarted on torsemide 50 mg by mouth twice a day along with spironolactone 25 mg daily. This dose of diuretic is half the dose of his outpatient diuretic. If his volume status gets decompensated, then his diuretic dose will be increased. 4. Diabetes mellitus type 2. Continue insulin sliding scale and Levemir. Tradjenta is on hold at this point. DISPOSITION: Patient is stable enough hopefully to be discharged home over the next 24-48 hours. He needs to followup in nephrology within 1 week after discharge from the hospital.
[2018-08-12 07:29] LABS: C REACTIVE PROTEIN QUANTITATIV 4.15 MG/DL (0.00-0.30)
[2018-08-12] MEDS: HumaLOG INSULIN (NovoLOG) PER UNIT SC SCH (07:30)
[2018-08-12] MEDS: ASCORBIC ACID 500 MG TAB PO SCH (08:34)
[2018-08-12] MEDS: FEBUXOSTAT 40 MG TABLET (ULORIC) PO SCH (08:34)
[2018-08-12] MEDS: TORSEMIDE (DEMADEX) 50 MG PER 1/2 TAB PO SCH (08:34)
[2018-08-12] MEDS: CEFDINIR 300 MG CAP (OMNICEF) PO SCH (08:34)
[2018-08-12 08:35] VITALS: BP 146/62
[2018-08-12] MEDS: MULTIVITAMINS/MINERALS THERAP 1 TAB PO SCH (08:35)
[2018-08-12] MEDS: AZITHROMYCIN 250 MG TAB PO SCH (08:35)
[2018-08-12] MEDS: SPIRONOLACTONE 25 MG TAB PO SCH (08:35)
[2018-08-12] MEDS: METOPROLOL TART 50 MG TAB PO SCH (08:35)
[2018-08-12] MEDS: CALCITRIOL 0.25 MCG CAP (S0169) PO SCH (08:35)
[2018-08-12] MEDS: GABAPENTIN 300 MG CAP PO SCH (08:35)
[2018-08-12] MEDS: ASPIRIN 325 MG TAB PO SCH (08:35)
[2018-08-12] MEDS: LEVEMIR (INSULIN DETEMIR) 1 UNITS/0.01ML SC SCH (08:36)
[2018-08-12 10:32] LABS: C REACTIVE PROTEIN QUANTITATIV 6.03 MG/DL (0.00-0.30)
[2018-08-12 10:40] LABS: C REACTIVE PROTEIN QUANTITATIV 9.38 MG/DL (0.00-0.30)
[2018-08-12] MEDS ORDERED: AZIT-12 PO (11:10)
[2018-08-12] MEDS ORDERED: CEFD300CAP PO (11:10)
[2018-08-12] MEDS ORDERED: TORS100T PO (11:10)
[2018-08-12] MEDS ORDERED: ALDA25TA2 PO (11:10)
--- NOTE | 2018-08-12 12:26 | DS.PDOC ---
Discharge Summary General Date of Admission Aug 09, 2018 at 02:24 Date of Discharge 08/12/2018 Discharge Summary PROCEDURES PERFORMED DURING STAY: [None]. ADMITTING DIAGNOSES / DISCHARGE DIAGNOSES: s/p Acute metabolic encephalopathy - likely 2/2 polypharmacy, possibly 2/2 CAP, possibly 2/2 delirium Community acquired pneumonia Acute kidney injury on CKD3 CAD s/p CABG CHF HTN IDDM2 DLP MORIAH on CPAP Neuropathy Gout GERD DVT prophylaxis COMPLICATIONS/CHIEF COMPLAINT: Acute kidney injury from [facility] Cough HISTORY OF PRESENT ILLNESS: Patient is a 8-year-old male with a PMHx of CAD s/p CABG, CHF, HTN, IDDM2, DLP, MORIAH on CPAP, CKD3, Neuropathy, Gout, who presented to [facility] from [facility] for renal failure. Patient was found to have an acute kidney injury, likely secondary from excessive diuretics and possible kidney acquired pneumonia. Patient was admitted to hospitalist service for further evaluation and treatment. Nephrology was called on consultation. HOSPITAL COURSE: s/p Acute metabolic encephalopathy - likely 2/2 polypharmacy, possibly 2/2 CAP, possibly 2/2 delirium - Mentation has improved; oriented x3 - No focal deficits - c/w below Community acquired pneumonia - Clinically has had resolution of his shortness of breath and cough - Physical without any adventitious lung sounds - No lactic acidosis; Mild elevation of WBC; CRP continues to trend down - Imaging at [facility] revealed infiltrate - c/w Cefdinir and Azithromycin (Day #5); s/p Ceftriaxone - will complete antibiotics as outpatient Acute kidney injury on CKD3 - Cr appears to have improved to baseline (~2.4) - s/p IV fluid hydration - c/w adjust dose of diuretic therapy CAD s/p CABG - c/w ASA, Atorvastatin CHF - Mild LE edema noted - ECHO 08/11: EF 60%, G2DD, Moderate L atrial dilation, - c/w adjusted dose of diuretics HTN - BP well controlled - c/w Metoprolol - c/w Adjusted dose of diuretics IDDM2 - c/w ISS - c/w Levemir 120 BID DLP - c/w Atorvastatin MORIAH on CPAP - May use own BIPAP Neuropathy - c/w Gabapentin Gout - c/w Febuxostat GERD - c/w Famotidine DVT prophylaxis - c/w Lovenox DISCHARGE MEDICATIONS: Please see below. ALLERGIES: Please see below. PHYSICAL EXAMINATION ON DISCHARGE: Vitals (See below) General: Lying in bed, no acute distress, comfortable, AAOx3 HEENT: NC, AT CVS: RRR, +S1S2 Lungs: Fair air entry b/l, no evidence of rhonchi, rales or wheezing Abdomen: Soft, nondistended, without tenderness, obese Extremities: 1+ / trace pitting edema bilaterally, - Calf tenderness LABORATORY DATA: Please see below. ACTIVITY: [As tolerated]. DISCHARGE PLAN: Follow-up with Dr. Dennise Vale and Dr. Block within 7 days Remained compliant with treatment plan and medications Return to the ER if you experience any problems. DISPOSITION: Home DISCHARGE CONDITION: [Stable]. TIME SPENT ON DISCHARGE: Greater than [35] minutes. Vital Signs/I&Os Vital Signs Date Time Temp Pulse Resp B/P (MAP) Pulse Ox O2 Delivery O2 Flow Rate FiO2 08/12/18 08:35 64 146/62 08/12/18 06:37 96.8 18 98 08/10/18 06:00 3.0 I&O- Last 24 Hours up to 6 AM 08/12/18 06:00 Intake Total 2050 ml Output Total 3100 ml Balance -1050 ml Laboratory Data Labs 24H Laboratory Tests 2 08/11/18 16:38: Bedside Glucose (Misc Panel) 167H 08/12/18 06:02: Nucleated Red Blood Cells % (auto) 0.0, Anion Gap 9, Glomerular Filtration Rate 31.0L, Blood Urea Nitrogen 79H, Creatinine 2.26H, Sodium Level 138, Potassium Level 3.5, Chloride Level 102, Carbon Dioxide Level 27, Calcium Level 9.4, C- Reactive Protein, Quantitative 4.15H CBC/BMP Laboratory Tests 08/12/18 06:02 Red Blood Count 5.08, Mean Corpuscular Volume 88.0, Mean Corpuscular Hemoglobin 27.8, Mean Corpuscular Hemoglobin Concent 31.5 L, Red Cell Distribution Width 15.5 H, Calcium Level 9.4 FSBS Laboratory Tests Test 08/11/18 16:38 Range/Units Bedside Glucose (Misc Panel) 167 80-115 MG/DL Microbiology Microbiology 08/09/18 Blood Culture - Preliminary, Resulted No Growth after 72 hours. All specime... 08/10/18 Gram Stain - Final, Complete 08/10/18 Sputum Culture - Final, Complete Discharge Medications Scheduled (Toujeo Solostar) 300 Unit/Ml Inj, 150 UNIT SC BID, (Reported) ([place]-3 Fish Oil 1200 mg) 1 Cap Cap, 1 CAP PO QHS, (Reported) Ascorbic Acid (Ascorbic Acid) 500 Mg Tab, 500 MG PO DAILY, (Reported) Aspirin (Aspirin) 325 Mg Tab, 325 MG PO DAILY, (Reported) Atorvastatin Calcium (Atorvastatin Calcium) 40 Mg Tab, 40 MG PO QHS, (Reported) Azithromycin (Azithromycin) 250 Mg Tab, 250 MG PO DAILY Calcitriol (Calcitriol) 0.25 Mcg Cap, 0.25 MCG PO DAILY, (Reported) Cefdinir (Cefdinir) 300 Mg Cap, 300 MG PO BID Coenzyme Q10 (Co Q10) 200 Mg Cap, 200 MG PO QHS, (Reported) Famotidine (Famotidine) 40 Mg Tab, 40 MG PO QHS, (Reported) Febuxostat (Uloric) 80 Mg Tab, 80 MG PO DAILY, (Reported) Gabapentin (Gabapentin) 300 Mg Cap, 300 MG PO BID, (Reported) Insulin Human Lispro (Humalog) 1 Units/0.01 Ml Inj, 110 UNITS SC TID, (Reported) Linagliptin Base (Tradjenta) 5 Mg Tab, 5 MG PO DAILY, (Reported) Metolazone (Metolazone) 5 Mg Tab, 5 MG PO DAILY, (Reported) Metoprolol Tartrate (Metoprolol Tartrate) 50 Mg Tab, 50 MG PO BID, (Reported) Multivitamins *[facility] STOCKED* (Thera M Plus *[facility] STOCKED*) 1 Tab Tab, 1 TAB PO DAILY, (Reported) Spironolactone (Aldactone) 25 Mg Tab, 25 MG PO QAM Torsemide (Torsemide) 100 Mg Tab, 50 MG PO BID Scheduled PRN Acetaminophen/Codeine (Acetaminophen/Codeine 300-30 mg) 1 Tab Tab, 1 TAB PO Q6H PRN for PAIN, (Reported) Baclofen (Baclofen) 10 Mg Tab, 10 MG PO DAILY PRN for PAIN, (Reported) Allergies Coded Allergies: TAPE (Verified Allergy, Unknown, Hives, 08/09/18) NSAIDs (Verified Adverse Reaction, Intermediate, HISTORY OF RENAL INSUFFIENCY, 11/02/12) HERACLIO ABREU MD Aug 12, 2018 12:26
--- NOTE | 2018-08-13 09:39 | IPN ---
DATE OF SERVICE: 08/12/2018 SUBJECTIVE: Patient was seen and examined at the bedside today morning. He is afebrile. Hemodynamically stable. He is making very good amount of urine. Renal function is stable. Creatinine is 2.2. Patient reports that he is getting ready to be discharged today. OBJECTIVE: Vital signs: Temperature is 96.8 degrees Fahrenheit, blood pressure is 146/62, pulse is 64, respiratory rate of 18, saturating 98% on room air. Intake and output: Urine output recorded as 3 liters yesterday, 1.1 liter so far today since overnight. Weight in the bed scale is not available. PHYSICAL EXAMINATION: General: Patient is awake, alert, oriented times three, sitting up on the bed, no apparent distress, morbidly obese. Head and neck exam: Extraocular muscles intact. Pupils equally round and reactive to light. Mucous membranes are moist. Neck: Is supple, there is no jugular venous distention (JVD). Cardiovascular: S1, S2. 1+ edema of the right lower extremity and 2+ edema of the left lower extremity. Respiratory: Chest is clear to auscultation bilaterally. Bilateral equal air entry. No rales or rhonchi. Abdomen: Soft, obese, positive bowel sounds. Nontender. No organomegaly. Musculoskeletal: No clubbing or cyanosis. Pulses are 2+. Central nervous system: No focal deficit. Power is 5/5 in all extremities. LAB REVIEW: CBC showed a WBC of 11.2, hemoglobin 14.1, platelets of 182. BMP showed sodium 138, potassium 3.5, chloride 102, bicarbonate 27, BUN 79, creatinine is 2.2. It was 2.2 yesterday as well. C reactive protein is improving at 4.1. MICROBIOLOGY: Blood cultures are negative. CURRENT INPATIENT MEDICATIONS: Patient's medications were all reviewed by me. There is no change in the medications today as compared with yesterday. ASSESSMENT AND PLAN: 1. Acute renal failure superimposed on chronic kidney disease stage 4. It was secondary to dehydration and volume depletion and sickness with community acquired pneumonia. Patient's renal function has improved back to baseline with a creatinine of 2.2. I have resumed lower dose of diuretic, torsemide 50 mg by mouth twice a day and spironolactone 25 mg by mouth daily. Rest of the adjustment will be done as outpatient in the clinic. 2. Community acquired pneumonia. Patient is currently on oral antibiotic. He can be discharged home on oral antibiotic. 3. Chronic diastolic congestive heart failure. Latest echo showed left ventricle (LV) of 60% with grade 2 diastolic dysfunction. As mentioned above his home dose of torsemide was 100 mg twice a day and spironolactone 25 mg twice a day, he is currently on half that dose with torsemide 50 twice a day and spironolactone 25 daily. The rest of the diuretic adjustment will be done as outpatient. 4. Diabetes mellitus type 2. Continue insulin sliding scale and Levemir. DISPOSITION: Patient is optimized from a nephrology standpoint for discharge home. He needs to followup with nephrology within 1 week after discharge from the hospital.
== END 2018-08-12 12:38 | disposition home or self-care (01) | DRG 193 ==
LOC: M MSPAV 08-09 02:24
PROVIDERS: ADMIT Internal Medicine; ATTEND Internal Medicine
DX: J18.9 Pneumonia, unspecified organism (principal); G93.41 Metabolic encephalopathy; N17.9 Acute kidney failure, unspecified; Z68.43 Body mass index [BMI] 50.0-59.9, adult; I13.0 Hypertensive heart and chronic kidney disease with heart failure and stage 1 through stage 4 chronic kidney disease, or unspecified chronic kidney disease; N25.81 Secondary hyperparathyroidism of renal origin; I50.32 Chronic diastolic (congestive) heart failure; E66.01 Morbid (severe) obesity due to excess calories; E11.51 Type 2 diabetes mellitus with diabetic peripheral angiopathy without gangrene; K21.9 Gastro-esophageal reflux disease without esophagitis; M10.9 Gout, unspecified; N18.3 Chronic kidney disease, stage 3 (moderate); I25.10 Atherosclerotic heart disease of native coronary artery without angina pectoris; Z95.1 Presence of aortocoronary bypass graft; G47.33 Obstructive sleep apnea (adult) (pediatric); Z79.899 Other long term (current) drug therapy; Z79.82 Long term (current) use of aspirin; Z79.4 Long term (current) use of insulin; Z88.6 Allergy status to analgesic agent; E78.5 Hyperlipidemia, unspecified